=== PATIENT | female | born 1970 | race Caucasian/White ===

== ENCOUNTER → 2020-06-11 | Outpatient (CLI) | payer OTHER | LOC: CT 09:33 | DX: R19.7 Diarrhea, unspecified (principal) | CPT/HCPCS: Q9967 ==

== ENCOUNTER → 2021-09-12 | Outpatient (CLI) | payer OTHER ==
[2021-09-12 10:57] LABS: HEMOGLOBIN 14.5 gm/dl (12.3-15.3); RED BLOOD COUNT 4.8 M/UL (4.00-5.10); WHITE BLOOD COUNT 10.4 K/UL (4.5-11.0)
[2021-09-12 11:23] LABS: BUN/CREATININE RATIO 16 (0-10)
== END ==
LOC: LAB 10:30
PROVIDERS: Nurse Practitioner
DX: E78.2 Mixed hyperlipidemia (principal); E11.8 Type 2 diabetes mellitus with unspecified complications; E53.8 Deficiency of other specified B group vitamins
CPT/HCPCS: 36415; 73030; 80053; 80061; 82607; 82746; 83036; 84439; 84443; 85025